=== PATIENT | male | born 1965 | race Caucasian/White ===

== ENCOUNTER 2016-09-26 07:40 | Inpatient (IN) ==
[2016-09-26 08:26] LABS: Basophils % 0.5 % (0.0-0.8); Eosinophils # 0.1 10*3/uL (0.0-0.87); Eosinophils % 1.7 % (0.00-10.9); Hematocrit 39.5 VOL% (42.0-52.0); Immature Granulocytes % 0.4 %; Immature Granulocytes Absolute 0.03 #; Lymphocytes # 1.3 10*3/uL (1.4-4.0); Lymphocytes % 16.7 % (21.2-54.2); Mean Corpuscular HGB Conc 35.4 GM/DL (32-36); Mean Corpuscular Hemoglobin 30 PG (27-34); Mean Corpuscular Volume 84.6 FL (87-102); Mean Platelet Volume 11.3 FL (9.6-12.0); Monocytes # 0.5 10*3/uL (0.11-0.8); Monocytes % 7.2 % (1.7-12.7); Neutrophils # 5.5 10*3/uL (1.4-7.4); Neutrophils % 73.5 % (38.7-73.9); Platelet Count 123 T/CUMM (130-400); Red Blood Count 4.67 MC/CUMM (3.8-5.5); Red Cell Distribution Width 13.6 % (9.3-17.3); White Blood Count 7.5 T/CUMM (4-12)
[2016-09-26 08:41] LABS: INR 1.4; PT Patient Result 14.7 SECS; Partial Thromboplastin Time 28.9 SECS (0-40)
[2016-09-26 08:46] LABS: Alanine Aminotransferase 21 U/L (16-61); Albumin 3.6 G/DL (3.4-5.0); Alkaline Phosphatase 79 U/L (45-117); Aspartate Amino Transferase 16 U/L (0-37); Bilirubin,Total < 0.39 MG/DL (0.2-1.0); Blood Urea Nitrogen 19 MG/DL (7-18); Calcium 8.8 MG/DL (8.5-10.1); Glucose 100 MG/DL (74-106); Osmolality,Calculated 274.8 MOS/KG (273-304); Potassium 4.5 MMOL/L (3.5-5.1); Sodium 137 MMOL/L (136-145); Total Protein 6.6 G/DL (6.4-8.3)
[2016-09-26 08:49] LABS: Troponin I Only 0.049 NG/ML (0.00-0.045)
--- NOTE | 2016-09-26 09:32 | XRay Report ---
XR chest 1V portable Indication: Shortness of breath. Chest one view: No comparison. Moderate cardiomegaly is present. Mild interstitial prominence of the lungs noted throughout. However, no convincing peripheral pulmonary edema is seen. There is an element of peribronchial thickening centrally. No focal pneumonia. Pleural spaces are clear. Impression: 1. Moderate cardiomegaly without overt CHF. 2. Airways disease such as bronchitis. PROCEDURE INTERPRETED AT [facility] DEPARTMENT OF RADIOLOGY Final Report Signed by: Ulysses Parnell M.D.
[2016-09-26] MEDS ORDERED: FUROSEMIDE 40 MG/4 ML VIAL IV STA (09:36)
[2016-09-26] MEDS ORDERED: ASPIRIN 325 MG TABLET PO STA (09:46)
--- NOTE | 2016-09-26 09:48 | EKG Report ---
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
--- NOTE | 2016-09-26 09:49 | Emergency Department Note ---
IOra Gwan, am scribing for, and in the presence of, Janna Goyal DO 08:26 . IJay Jay Debra, DO, personally performed the services described in this documentation, ascribed by Katelynn Payan in my presence, and it is both accurate and complete 949 . Arrival - Arrival Chief Complaint: Shortness of Breath Stated Complaint: sob,anxiety ED Nursing Triage Note: PT SENT FROM [facility] FOR EVALUATION OF SHORTNESS OF BREATH. PT REPORTS BECOMING SHORT OF BREATH AND ANXIOUS AFTER SMOKING A CIGARETTE. EMS FOUND PT TO BE IN AFIB RVR IN 140'S. PT DENES CHEST PAIN. PT HAS SEEN DR MANJARREZ FOR AFIB Mode of Arrival: Stretcher Source: Patient, Old Records Reviewed - History of Present Illness HPI Narrative: Patient is a 51 y/o male who presents to the ED via [facility] for further evaluation of possible anxiety attack. Patient stated that he went out to smoke a cigarette and he began to experience sxs of a panic attack. EMS noted that when they arrived, pt's was in AFIB with RVR in 140's. Patient confirmed that he is being followed by Dr. Manjarrez for AFIB and that he has been complaint with all prescribed medication. Patient then said that he has had a hard time breathing. He denies having in chest pain. During exam, patient appeared anxious and slightly delayed. No other problems/complaints reported in ED. Onset (ago): hour(s) Consistency: constant Severity: moderate Allergies/Adverse Reactions: Allergies Allergy/AdvReac Type Severity Reaction Status Date / Time No Known Allergies Allergy Verified 09/26/16 07:52 Review of System - Review of System 12 point system: reviewed and no additional remarkable complaints except as stated - Review of System Constitutional: Absent: chills, fever Eyes: Absent: discharge, pain Psychiatric: Present: as per HPI, anxiety. Absent: depression Medical,Surgical,& Family Hx - Medical History Cardio: History of: Cardiac Dysrhythmia (AFIB), Hypertension Psychological: History of: Schizophrenia (PARANOID) Endocrine: History of: Thyroid Disorder Gastrointestinal: History of: GERD - Social History Smoking Status: Current every day smoker Frequency of Alcohol Use: None Type of Drug Use: None Exam Vital Signs: Vital Signs Temperature 96.9 F L 09/26/16 07:40 Pulse Rate 90 09/26/16 07:40 Respiratory Rate 18 09/26/16 07:40 Blood Pressure 117/75 09/26/16 07:40 O2 Sat by Pulse Oximetry 96 09/26/16 07:40 - General General appearance: alert, in no apparent distress, anxious, obese - Head Head exam: Present: atraumatic, normocephalic - Eye Eye exam: Present: normal appearance, PERRL, EOMI - ENT ENT exam: Present: normal oropharynx, mucous membranes moist, TM's normal bilaterally, normal external ear exam - Neck Neck exam: Present: full ROM, trachea midline. Absent: tenderness - Chest Chest inspection: Present: symmetric chest wall rise. Absent: tenderness - Respiratory Respiratory exam: Present: normal lung sounds bilaterally. Absent: respiratory distress - Cardiovascular Cardiovascular exam: Present: regular rate, normal rhythm, normal heart sounds. Absent: murmur - Abdominal Exam Abdominal exam: Present: soft. Absent: tenderness - Extremities Exam Extremities exam: Present: full ROM. Absent: tenderness - Back Exam Back exam: Present: full ROM. Absent: tenderness - Neurological Exam Neurological exam: Present: alert, oriented X3, CN II-XII intact. Absent: motor sensory deficit - Psychiatric Psychiatric exam: Present: normal affect, normal mood - Skin Skin exam: Present: warm, dry, intact, normal color Course Course Narrative: spoke with hospitalist who will admit pt. pt is stable at this pt and is not currently having chest pain. Results - Labs CBC & BMP: 09/26/16 08:11 09/26/16 08:11 Lab Results: I have reviewed the patients labs Labs: Laboratory Tests 09/26/16 08:11 WBC 7.5 RBC 4.67 Hgb 14.0 Hct 39.5 L MCV 84.6 L Plt Count 123 L Lymph % (Auto) 16.7 L Lymph # (Auto) 1.3 L Disposition Clinical Impression: Congestive heart failure, Elevated troponin Case discussed with: patient Disposition: Still a Patient Condition: Stable Time of Disposition: 09:49
--- NOTE | 2016-09-26 09:49 | EKG Report ---
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
[2016-09-26] MEDS ORDERED: FUROSEMIDE 40 MG/4 ML VIAL ONE (10:09)
[2016-09-26] MEDS ORDERED: ASPIRIN 325 MG TABLET ONE (10:09)
[2016-09-26] MEDS ORDERED: NITROGLYCERIN SL 0.4 MG TABLET SL PRN (11:07)
[2016-09-26] MEDS ORDERED: ONDANSETRON 4 MG/2 ML VIAL IV PRN ×2 (11:07→11:09)
[2016-09-26] MEDS ORDERED: MAGNESIUM SULF RIDER 4 GM in PREMIX 1 EACH IV PRN (11:07)
[2016-09-26] MEDS ORDERED: POTASSIUM CHLORIDE 20 MEQ TABLET PO PRN ×2 (11:07)
[2016-09-26] MEDS ORDERED: MAGNESIUM SULF RIDER 2 GM in PREMIX 1 EACH IV PRN (11:07)
[2016-09-26] MEDS ORDERED: ALBUTEROL 0.63 MG/3 ML NEB RESP TX PRN (11:08)
[2016-09-26] MEDS ORDERED: METOPROLOL TARTRATE 100 MG TABLET PO ONE (11:11)
--- NOTE | 2016-09-26 11:15 | Hospitalist History & Physical ---
Assessment and Plan (1) Schizophrenia, paranoid type Status: Acute Assessment and plan: We have contacted the residential home that the patient resides in order to accurately reconciled the patient's current medications. We receive the most recent medication list and we will resume the patient's medications per home dose. Current Visit: Yes (2) Congestive heart failure Status: Acute Assessment and plan: BNP was noted at 800. Chest x-ray remarkable for moderate cardiomegaly without overt CHF. We will gently diurese, start beta-blockers, and BJ inhibitors. We will recheck chest x-ray in a.m. Current Visit: Yes (3) Elevated troponin Status: Acute Assessment and plan: Initial creatinine was noted at 0.049. We will obtain serial cardiac enzymes and if positive we will consult cardiology. Current Visit: Yes (4) Atrial fibrillation with rapid ventricular response Status: Acute Assessment and plan: The patient is currently being followed in the outpatient setting by Dr. Pereira at the [facility] for this problem. The patient was recently placed on anticoagulant Xarelto and a beta-zack metoprolol as a treatment regimen. Per retirement staff report, the patient was scheduled to start the beta-zack on this morning however, he was already taking the Xarelto. We will resume metoprolol per cardiology recommendation at 100 mg twice daily. We will place the patient on a chief operating engineer and continue Xarelto as previously ordered. Current Visit: Yes History of Present Illness Chief complaint: Chest pain History of present illness: This is a very pleasant 51-year-old male that presented to the ED at [facility] on this morning for the evaluation of chest pain. Patient has a medical history significant for schizophrenia paranoid type, hypertension, atrial fibrillation with rapid ventricular response. Dyslipidemia , current nicotine addiction, and hypothyroidism. The patient reported no significant surgical history at the time of ED encounter. The patient reported the onset of symptoms several weeks prior to presentation. He reported that he started feeling short of breath and experienced palpitations several weeks prior to presentation however, he attributed to cigarette smoking. His symptoms continue to persist and he reported the symptoms to the housekeeping worker of the residential home that he resides seen. They in turn took him to see his primary care physician Dr. Wood for further evaluation. The patient was evaluated and subsequently sent to a sort worker for further evaluation. The patient reported that he has since reduced his nicotine consumption to "2 packs of cigarettes a day to 6 cigarettes a day". He reported that he was seen by Dr. Pereira at the [facility]. He was told that he could possibly need a heart catheterization however there was concerns regarding his heart rate. He was subsequently started on Xarelto and metoprolol and told to follow-up in 2 weeks. He reported the onset of symptoms on this morning shortly after smoking a cigarette. He reports that he started to experience extreme shortness of breath and palpitations; which he attributed to a panic attack. His symptoms became severe prompting the retirement staff to summoned emergency assistance. Upon EMS arrival, the patient was placed on the chief operating engineer and was noted to be experiencing atrial fibrillation with rapid ventricular response with a heart rate in the 140s. The patient was subsequently transported to [facility] for further evaluation. The patient was assessed at the time of ED presentation. Upon assessment, the patient was noted to be in atrial fibrillation however his rate was less than 100. The chest pain protocol was initiated. Labs were obtained which were remarkable for hematocrit of 39.5, BUN 19, creatinine 1.60, CK-MB 4.0, troponin 0 0.049, and BNP of 800. Chest x-ray reported moderate cardiomegaly without overt congestive heart failure and the presence of airway disease similar to bronchitis was noted. After brief discussion with both Dr. Goyal and Dr. Lyons , the patient will be admitted to the hospitalist service for continuation of care. At the time of presentation, the medication reconciliation sheet did not reflect the start of Xarelto or metoprolol. I contacted the [facility] and spoke with the linux solar[employer] administrator on-call Guy Rhodes. The patient's medications were reconciled based on the patient's current medications there which included Xarelto and metoprolol. We will review the patient's medications and reconciled. In addition, the retirement has requested notification of the patient's pending discharge when the patient is deemed appropriate. The patient normally resides in a [facility] and their contact number is [phone]. They have requested notification when the patient is appropriate for discharge in an effort to schedule transport back to the retirement. Home Medications Medication Instructions Recorded Confirmed Type Benztropine Mesylate [Benztropine 2 mg PO BEDTIME 09/26/16 09/26/16 History Mesylate] Divalproex Sodium [Divalproex 2,000 mg PO BEDTIME 09/26/16 09/26/16 History Sodium ER] Divalproex Sodium [Divalproex 500 mg PO QAM 09/26/16 09/26/16 History Sodium ER] Gemfibrozil [Gemfibrozil] 600 mg PO BID 09/26/16 09/26/16 History Levothyroxine Tab [Synthroid Tab] 100 mcg PO DAILY@0700 09/26/16 09/26/16 History Lisinopril 20 mg PO DAILY 09/26/16 09/26/16 History Metoprolol Tartrate 100 mg PO DAILY 09/26/16 09/26/16 History Multivitamin [One Daily 1 each PO DAILY 09/26/16 09/26/16 History Multivitamin] Omeprazole [Omeprazole] 20 mg PO DAILY 09/26/16 09/26/16 History Rivaroxaban [Xarelto] 20 mg PO DAILY 09/26/16 09/26/16 History diphenhydrAMINE CAP [Benadryl Cap] 50 mg PO Q4H PRN 09/26/16 09/26/16 History hydrOXYzine pamoate [Hydroxyzine 25 mg PO TID PRN 09/26/16 09/26/16 History Pamoate] hydroCHLOROthiazide 12.5 mg PO DAILY 09/26/16 09/26/16 History [Hydrochlorothiazide] risperiDONE [Risperidone] 3 mg PO BID 09/26/16 09/26/16 History Allergies Allergy/AdvReac Type Severity Reaction Status Date / Time No Known Allergies Allergy Verified 09/26/16 07:52 Medical,Surgical,& Family Hx - Medical History Cardio: History of: Cardiac Dysrhythmia (AFIB), Hypertension Psychological: History of: Schizophrenia (PARANOID) Endocrine: History of: Thyroid Disorder Gastrointestinal: History of: GERD - Social History Smoking Status: Current every day smoker Frequency of Alcohol Use: None Type of Drug Use: None - Constitutional Constitutional: Absent: anorexia, chills - EENT Ears: Absent: decreased hearing, ear discharge Nose, mouth and throat: Absent: dysphagia, epistaxis - Cardiovascular Cardiovascular: Present: chest pain with activity, dyspnea, dyspnea on exertion - Respiratory Respiratory: Present: dyspnea, dyspnea on exertion. Absent: cough, hemoptysis - Gastrointestinal Gastrointestinal: Absent: abdominal pain, diarrhea, nausea, vomiting - Genitourinary Genitourinary: Absent: difficulty urinating, flank pain - Musculoskeletal Musculoskeletal: Absent: arthralgias, back pain - Neurological Neurological: Absent: abnormal gait, abnormal speech - Psychiatric Psychiatric: Present: panic attacks. Absent: anxiety, memory loss - Endocrine Endocrine: Absent: cold intolerance, fatigue - Hematologic/Lymphatic Hematologic/Lymphatic: Absent: easy bleeding, easy bruising Exam - Constitutional Vitals: Period Temp Pulse Resp BP Sys/Adamson Pulse Ox Last 24 Hr 96.9 F-96.9 F 90-120 18-18 90-117/68-83 94-100 General appearance: normal weight, no acute distress - Head Head exam: Present: normal inspection, normocephalic, atraumatic - Eye Eye exam: Present: EOMI. Absent: conjunctival injection Pupils: Present: DELMA, normal accommodation - ENT ENT exam: Present: normal exam, normal external ear exam, normal oropharynx - Neck Neck exam: Present: normal inspection. Absent: lymphadenopathy, meningismus, thyromegaly - Respiratory Respiratory exam: Present: clear to auscultation bilaterally - Cardiovascular Cardiovascular exam: Present: irregular rhythm (Atrial fibrillation), other - GI/Abdominal GI/Abdominal exam: Present: normal bowel sounds, soft - Extremities Exam Extremities exam: Present: normal inspection, normal capillary refill, full ROM. Absent: edema - Back Exam Back exam: Present: normal inspection - Neurological Exam Neurological exam: Present: alert, oriented X3, CN II-XII intact - Psychiatric Psychiatric exam: Present: flat affect - Skin Skin exam: Present: normal color, warm, dry Results - Labs CBC & BMP: 09/26/16 08:11 09/26/16 08:11 Lab Results: I have reviewed the past 24 hour labs Quality Measures - VTE Contraindication to Pharmacological VTE Prophylaxis: Already on Theraputic Agent , No Prophylaxis Needed
--- NOTE | 2016-09-26 11:28 | EKG Report ---
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
[2016-09-26] MEDS: ALBUTEROL 0.63 MG/3 ML NEB RESP TX SCH ×2 (13:44→19:30)
--- NOTE | 2016-09-26 13:46 | EKG Report ---
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
[2016-09-26] MEDS ORDERED: HydrOXYzine PAMOATE 25 MG CAPSULE PO PRN (14:37)
[2016-09-26] MEDS ORDERED: diphenhydrAMINE CAP 25 MG CAPSULE PO PRN (14:37)
[2016-09-26 15:07] LABS: Free T4 (Free Thyroxine) 0.98 NG/DL (0.76-1.46); Thyroid Stimulating Hormone 2.01 uIU/ml (0.358-3.74)
--- NOTE | 2016-09-26 20:42 | Cardiology Consult Note ---
Assessment and Plan (1) Elevated troponin Status: Acute Assessment and plan: 1. 51-year-old WM with hypertension, dyslipidemia, paranoid schizophrenia, and atrial fibrillation for at least a month, placed on Xarelto and metoprolol by Dr. Pereira about 2 weeks ago. He reports he was going to go back for stress testing after his rate was controlled but developed sudden shortness of breath after smoking a cigarette this morning and was found to have RVR in the 130s range but is now in the 90s. 2. He had no chest discomfort but did report having some a month or so ago with a previous episode. 3. Strong family history coronary artery disease his father had heart attack at age 52 4. He needs to stop all smoking; reports he is dropped from 2 packs a day to 6 cigarettes per day 5. We will give long-acting metoprolol to try to better control his rate. 6. Check renal function, electrolytes, TSH in the morning 7. Consider following up with Dr. Pereira as previously scheduled, or heart catheterization Wednesday depending on how he does; he had trivial elevation troponin but it did increase from 0.04-0.14 8. Creatinine is modestly elevated at 1.6 9. Hold Xarelto tomorrow in case he needs heart catheterization Wednesday morning 10. Change Lopid to atorvastatin 40 assuming may have CAD. Current Visit: Yes (2) Atrial fibrillation with rapid ventricular response Status: Acute Current Visit: Yes History of Present Illness - Consult Narrative History of present illness: Mr. Hines is a 51 year old male who was seen by Dr. Pereira a couple weeks ago when he apparently had atrial fibrillation with mild RVR I was placed on metoprolol and Xarelto. He reports that he did bring him back for a stress test when his heart rate is controlled. He went out to smoke a cigarette this morning and shortly thereafter became very short of breath and felt lightheaded. He was brought here and found to have RVR which is now somewhat controlled. He had no chest discomfort but he did have chest discomfort a month or so ago when he had his first episode like this. He is in care for his schizophrenia ([facility]?). He is asymptomatic currently. CC: Maria Ines Frank - Home Medications and Allergies Home Medications: Home Medications Medication Instructions Recorded Confirmed Type Benztropine Mesylate [Benztropine 2 mg PO BEDTIME 09/26/16 09/26/16 History Mesylate] Divalproex Sodium [Divalproex 2,000 mg PO BEDTIME 09/26/16 09/26/16 History Sodium ER] Divalproex Sodium [Divalproex 500 mg PO QAM 09/26/16 09/26/16 History Sodium ER] Gemfibrozil [Gemfibrozil] 600 mg PO BID 09/26/16 09/26/16 History Levothyroxine Tab [Synthroid Tab] 100 mcg PO DAILY@0700 09/26/16 09/26/16 History Lisinopril 20 mg PO DAILY 09/26/16 09/26/16 History Metoprolol Tartrate 100 mg PO DAILY 09/26/16 09/26/16 History Multivitamin [One Daily 1 each PO DAILY 09/26/16 09/26/16 History Multivitamin] Omeprazole [Omeprazole] 20 mg PO DAILY 09/26/16 09/26/16 History Rivaroxaban [Xarelto] 20 mg PO DAILY 09/26/16 09/26/16 History diphenhydrAMINE CAP [Benadryl Cap] 50 mg PO Q4H PRN 09/26/16 09/26/16 History hydrOXYzine pamoate [Hydroxyzine 25 mg PO TID PRN 09/26/16 09/26/16 History Pamoate] hydroCHLOROthiazide 12.5 mg PO DAILY 09/26/16 09/26/16 History [Hydrochlorothiazide] risperiDONE [Risperidone] 3 mg PO BID 09/26/16 09/26/16 History Allergies/Adverse Reactions: Allergies Allergy/AdvReac Type Severity Reaction Status Date / Time No Known Allergies Allergy Verified 09/26/16 07:52 Medical,Surgical,& Family Hx - Medical History Cardio: History of: Cardiac Dysrhythmia (AFIB), Hypertension Psychological: History of: Anxiety Disorders, Schizophrenia (PARANOID) Endocrine: History of: Thyroid Disorder Genitourinary: History of: Bladder Problem (for hematuria- had scope) Gastrointestinal: History of: GERD - Family History Family History: Reports;: Family Heart Disease (father) - Social History Smoking Status: Current every day smoker Frequency of Alcohol Use: None Type of Drug Use: None Physical Examination Vital Signs Temp Pulse Resp BP Pulse Ox 96.9 F L 90 18 117/75 96 09/26/16 07:40 09/26/16 07:40 09/26/16 07:40 09/26/16 07:40 09/26/16 07:40 General: Present: Appears Well, No Apparent Distress HEENT: Present: Normocephaly Neck: Present: Supple Neck, Midline Trachea, No JVD/HJR Cardiac: Present: Irregularly Regular. Absent: Systolic Murmur, Diastolic Murmur Lungs: Present: Normal Breath Sounds Abdomen: Present: Soft. Absent: Tender Extremities: Absent: Edema Result/EKG - Labs CBC & BMP: 09/26/16 08:11 09/26/16 08:11 Labs: Laboratory Results - last 24 hr 09/26/16 09/26/16 09/26/16 08:11 08:11 08:11 WBC 7.5 RBC 4.67 Hgb 14.0 Hct 39.5 L MCV 84.6 L MCH 30 MCHC 35.4 RDW 13.6 Plt Count 123 L MPV 11.3 Neut % (Auto) 73.5 Lymph % (Auto) 16.7 L Gray % (Auto) 7.2 Eos % (Auto) 1.7 Baso % (Auto) 0.5 Neut # (Auto) 5.5 Lymph # (Auto) 1.3 L Gray # (Auto) 0.5 Eos # (Auto) 0.1 Baso # (Auto) 0.0 Immature Gran % 0.4 Nucleated RBC % 0.0 Immature Gran # 0.03 Nucleated RBCs # 0.00 Immature Plt Fraction 0.0 INR PT Patient/Control Mix Circ Anticoag PTT Sodium 137 Potassium 4.5 Chloride 105 Carbon Dioxide 24 Anion Gap 12.5 BUN 19 H Creatinine 1.60 H GFR Calculation 65 BUN/Creatinine Ratio 11.00 Glucose 100 Calculated Osmolality 274.8 Calcium 8.8 Total Bilirubin < 0.39 AST 16 ALT 21 Alkaline Phosphatase 79 Total Creatine Kinase 212 CK-MB (CK-2) 4.0 H Troponin I 0.049 H B-Natriuretic Peptide 800 H Total Protein 6.6 Albumin 3.6 Globulin 3.0 Albumin/Globulin Ratio 1.2 Free T4 TSH 3rd Generation 09/26/16 09/26/16 09/26/16 08:11 13:46 13:46 WBC RBC Hgb Hct MCV MCH MCHC RDW Plt Count MPV Neut % (Auto) Lymph % (Auto) Gray % (Auto) Eos % (Auto) Baso % (Auto) Neut # (Auto) Lymph # (Auto) Gray # (Auto) Eos # (Auto) Baso # (Auto) Immature Gran % Nucleated RBC % Immature Gran # Nucleated RBCs # Immature Plt Fraction INR 1.4 PT Patient/Control Mix 14.7 Circ Anticoag PTT 28.9 Sodium Potassium Chloride Carbon Dioxide Anion Gap BUN Creatinine GFR Calculation BUN/Creatinine Ratio Glucose Calculated Osmolality Calcium Total Bilirubin AST ALT Alkaline Phosphatase Total Creatine Kinase CK-MB (CK-2) Troponin I 0.122 H D B-Natriuretic Peptide Total Protein Albumin Globulin Albumin/Globulin Ratio Free T4 0.98 TSH 3rd Generation 2.010 09/26/16 17:07 WBC RBC Hgb Hct MCV MCH MCHC RDW Plt Count MPV Neut % (Auto) Lymph % (Auto) Gray % (Auto) Eos % (Auto) Baso % (Auto) Neut # (Auto) Lymph # (Auto) Gray # (Auto) Eos # (Auto) Baso # (Auto) Immature Gran % Nucleated RBC % Immature Gran # Nucleated RBCs # Immature Plt Fraction INR PT Patient/Control Mix Circ Anticoag PTT Sodium Potassium Chloride Carbon Dioxide Anion Gap BUN Creatinine GFR Calculation BUN/Creatinine Ratio Glucose Calculated Osmolality Calcium Total Bilirubin AST ALT Alkaline Phosphatase Total Creatine Kinase CK-MB (CK-2) Troponin I 0.139 H B-Natriuretic Peptide Total Protein Albumin Globulin Albumin/Globulin Ratio Free T4 TSH 3rd Generation Quality Measures - VTE Contraindication to Pharmacological VTE Prophylaxis: Already on Theraputic Agent , No Prophylaxis Needed
[2016-09-26] MEDS ORDERED: GEMFIBROZIL 600 MG TABLET PO SCH (21:00)
[2016-09-26] MEDS: risperiDONE 1 MG TABLET PO SCH (21:18)
[2016-09-26] MEDS: METOPROLOL SUCCINATE XL 50 MG TABLET PO SCH (21:19)
[2016-09-26] MEDS: ATORVASTATIN 40 MG TABLET PO SCH (21:19)
[2016-09-26] MEDS: DIVALPROEX ER 500 MG TABLET PO SCH (21:19)
[2016-09-26] MEDS: BENZTROPINE 2 MG TABLET PO SCH (21:20)
[2016-09-27] MEDS: ALBUTEROL 0.63 MG/3 ML NEB RESP TX SCH ×4 (00:59→19:47)
[2016-09-27 05:48] LABS: Basophils # 0.1 10*3/uL (0.0-0.2); Basophils % 0.8 % (0.0-0.8); Eosinophils # 0.3 10*3/uL (0.0-0.87); Eosinophils % 3.8 % (0.00-10.9); Hematocrit 40.7 VOL% (42.0-52.0); Hemoglobin 14.1 GM/DL (14.0-18.0); Immature Granulocytes % 0.4 %; Immature Granulocytes Absolute 0.03 #; Lymphocytes # 2.6 10*3/uL (1.4-4.0); Lymphocytes % 36.1 % (21.2-54.2); Mean Corpuscular HGB Conc 34.6 GM/DL (32-36); Mean Corpuscular Hemoglobin 30 PG (27-34); Mean Corpuscular Volume 85.1 FL (87-102); Mean Platelet Volume 11.6 FL (9.6-12.0); Monocytes # 0.7 10*3/uL (0.11-0.8); Monocytes % 10.4 % (1.7-12.7); Neutrophils # 3.5 10*3/uL (1.4-7.4); Neutrophils % 48.5 % (38.7-73.9); Platelet Count 131 T/CUMM (130-400); Red Blood Count 4.78 MC/CUMM (3.8-5.5); Red Cell Distribution Width 13.5 % (9.3-17.3); White Blood Count 7.1 T/CUMM (4-12)
[2016-09-27] MEDS: LEVOTHYROXINE 100 MCG TABLET PO SCH (06:11)
[2016-09-27 06:18] LABS: Calcium 8.8 MG/DL (8.5-10.1); Osmolality,Calculated 279.5 MOS/KG (273-304); Potassium 3.8 MMOL/L (3.5-5.1); Risk Ratio 4.79; VLDL CHOLESTEROL 36.2 MG/DL
[2016-09-27 06:29] LABS: Albumin 3.3 G/DL (3.4-5.0); Bilirubin,Total 0.6 MG/DL (0.2-1.0); Magnesium 2.3 MG/DL (1.8-2.4); Osmolality,Calculated 282.4 MOS/KG (273-304); Potassium 3.8 MMOL/L (3.5-5.1); Total Protein 6.5 G/DL (6.4-8.3)
--- NOTE | 2016-09-27 08:31 | Hospitalist Progress Note ---
Assessment and Plan - Time spent with patient Time spent with patient: Less than 30 minutes (1) Elevated troponin Status: Acute Assessment and plan: Patient continues to deny any chest pain. Troponin did peak at approximately 0.139 and is now trending downwards. Is otherwise doing well. Will defer to cardiology in reference to proceeding with further evaluation, stress testing versus left heart catheterization. Current Visit: Yes (2) Atrial fibrillation with rapid ventricular response Status: Acute Assessment and plan: Rate currently shows on the monitor ranging from 90-110. Will continue to optimize regimen for rate control. Anticoagulation is currently on hold until cardiology determines need for possible left heart cath on Wednesday. Current Visit: Yes (3) Schizophrenia, paranoid type Status: Chronic Assessment and plan: Continuing current medical regimen. Current Visit: Yes Hospitalist: Subjective Interval history: Mr. Hines denies any chest pain or shortness of breath at this time. He does have intermittent palpitations. He is tolerating his diet. He was seen by cardiology yesterday and appreciate their input. Exam - Constitutional Vitals: Period Temp Pulse Resp BP Sys/Adamson Pulse Ox Last 24 Hr 97.8 F-98.6 F 64-120 16-22 94-123/70-90 92-100 General appearance: no acute distress - Head Head exam: Present: normocephalic, atraumatic - Eye Eye exam: Present: EOMI Pupils: Present: DELMA - ENT ENT exam: Present: normal exam - Neck Neck exam: Present: normal inspection - Respiratory Respiratory exam: Present: clear to auscultation bilaterally. Absent: rales, rhonchi, wheezes - Cardiovascular Cardiovascular exam: Present: irregular rhythm, tachycardia - GI/Abdominal GI/Abdominal exam: Present: normal bowel sounds, soft. Absent: mass, tenderness , rebound - Extremities Exam Extremities exam: Absent: calf tenderness, edema - Neurological Exam Neurological exam: Present: alert, oriented X3, CN II-XII intact. Absent: motor sensory deficit - Psychiatric Psychiatric exam: Present: normal affect, normal mood. Absent: agitated, anxious - Skin Skin exam: Present: warm, dry. Absent: erythema, rash Results - Labs CBC & BMP: 09/27/16 05:17 09/27/16 05:18 Lab Results: I have reviewed the past 24 hour labs - EKG EKG shows: atrial fibrillation Quality Measures - VTE Contraindication to Pharmacological VTE Prophylaxis: Already on Theraputic Agent , No Prophylaxis Needed
[2016-09-27] MEDS: LISINOPRIL 20 MG TABLET PO SCH (08:44)
[2016-09-27] MEDS: risperiDONE 1 MG TABLET PO SCH ×2 (08:44→21:40)
[2016-09-27] MEDS: MULTIVITAMIN (CENTRUM) TABLET PO SCH (08:44)
[2016-09-27] MEDS: METOPROLOL SUCCINATE XL 50 MG TABLET PO SCH ×2 (08:44→21:40)
[2016-09-27] MEDS: hydroCHLOROthiazide 12.5 MG CAPSULE PO SCH (08:44)
[2016-09-27] MEDS: DIVALPROEX ER 500 MG TABLET PO SCH ×2 (08:44→21:40)
[2016-09-27] MEDS: PANTOPRAZOLE 40 MG TABLET PO SCH (08:52)
[2016-09-27] MEDS ORDERED: METOPROLOL TARTRATE 100 MG TABLET PO SCH (09:00)
[2016-09-27] MEDS ORDERED: NON-FORMULARY MEDICATION (Omeprazole [Omeprazole] 20 MG) PO SCH (09:00)
[2016-09-27] MEDS ORDERED: RIVAROXABAN 20 MG TABLET PO SCH (09:00)
[2016-09-27] MEDS ORDERED: POTASSIUM CHLORIDE RIDER 10 MEQ in PREMIX 1 EACH IV PRN (09:51)
[2016-09-27] MEDS ORDERED: MAGNESIUM SULF RIDER 2 GM in PREMIX 1 EACH IV PRN (09:51)
--- NOTE | 2016-09-27 09:51 | Cardiology Progress Note ---
Assessment and Plan (1) Elevated troponin Status: Acute Assessment and plan: 1. 51-year-old WM with hypertension, dyslipidemia, paranoid schizophrenia, and atrial fibrillation for at least a month, placed on Xarelto and metoprolol by Dr. Pereira about 2 weeks ago. He reports he was going to go back for stress testing after his rate was controlled but developed sudden shortness of breath after smoking a cigarette this morning and was found to have RVR in the 130s range but is now in the 90s. 2. He had no chest discomfort but did report having some a month or so ago with a previous episode. 3. Strong family history coronary artery disease his father had heart attack at age 52 4. He needs to stop all smoking; reports he is dropped from 2 packs a day to 6 cigarettes per day 5. We will give long-acting metoprolol to try to better control his rate. 6. Check renal function, electrolytes, TSH in the morning 7. Consider following up with Dr. Pereira as previously scheduled, or heart catheterization Wednesday depending on how he does; he had trivial elevation troponin but it did increase from 0.04-0.14 8. Creatinine is modestly elevated at 1.6 9. Hold Xarelto tomorrow in case he needs heart catheterization Wednesday morning 10. Change Lopid to atorvastatin 40 assuming may have CAD. September 27, 2016: 1. Mr. Hines continues to be in atrial fibrillation (persistent) with episodes of RVR as well as episodes of shortness of breath intermittently. 2. Given his worrisome risk factors and previous chest discomfort episodes, I discussed with him the risks and benefits of stress testing versus heart catheterization. I would lean towards catheterization for definitive diagnosis and he is agreeable to this. His troponin elevation is slight but there is a rise from his initial value of 0.04. 3. Denies daytime somnolence 4. Will be very important that he stay off cigarettes from now on 5. Schedule left heart catheterization tomorrow morning from right groin approach I discussed with the patient the risks and benefits of heart catheterization including but not limited to: , stroke, heart attack, vascular damage, reaction to medicine or dye, bleeding requiring blood transfusion, failure of the procedure, and the possible need for planned or emergency surgery. I have answered all the patient's questions regarding the procedure, and the patient is agreeable to proceed. Current Visit: Yes (2) Atrial fibrillation with rapid ventricular response Status: Acute Current Visit: Yes Cardiology - PN: Subj Interval history: Mr. Hines had several shortness of breath episodes during the night "cannot like panic attack". He also had some episodes of RVR and continues to be in atrial fibrillation. Is not had any chest discomfort during the night. He says that he slept well otherwise. He is not having dizziness presyncope or syncope. Exam (Progress Note) - Constitutional Vitals: Period Temp Pulse Resp BP Sys/Adamson Pulse Ox Last 24 Hr 97.8 F-98.6 F 64-109 16-22 98-123/75-90 92-99 General appearance: normal weight, no acute distress - Neck Neck exam: Present: normal inspection - Respiratory Respiratory exam: Present: clear to auscultation bilaterally. Absent: stridor, wheezes - Cardiovascular Cardiovascular exam: Present: irregular rhythm. Absent: diastolic murmur, rubs , tachycardia - GI/Abdominal GI/Abdominal exam: Present: soft. Absent: tenderness - Extremities Exam Extremities exam: Absent: edema Result/EKG - Labs CBC & BMP: 09/27/16 05:17 09/27/16 05:18 Labs: Laboratory Results - last 24 hr 09/26/16 09/26/16 09/26/16 13:46 13:46 17:07 WBC RBC Hgb Hct MCV MCH MCHC RDW Plt Count MPV Neut % (Auto) Lymph % (Auto) [place] % (Auto) Eos % (Auto) Baso % (Auto) Neut # (Auto) Lymph # (Auto) [place] # (Auto) Eos # (Auto) Baso # (Auto) Immature Gran % Nucleated RBC % Immature Gran # Nucleated RBCs # Immature Plt Fraction Sodium Potassium Chloride Carbon Dioxide Anion Gap BUN Creatinine GFR Calculation BUN/Creatinine Ratio Glucose Calculated Osmolality Calcium Magnesium Total Bilirubin AST ALT Alkaline Phosphatase Troponin I 0.122 H D 0.139 H Total Protein Albumin Globulin Albumin/Globulin Ratio Triglycerides Cholesterol LDL Cholesterol VLDL Cholesterol HDL Cholesterol Heart Disease Risk Ratio Free T4 0.98 TSH 3rd Generation 2.010 09/26/16 09/27/16 09/27/16 20:22 05:17 05:17 WBC 7.1 RBC 4.78 Hgb 14.1 Hct 40.7 L MCV 85.1 L MCH 30 MCHC 34.6 RDW 13.5 Plt Count 131 MPV 11.6 Neut % (Auto) 48.5 Lymph % (Auto) 36.1 [place] % (Auto) 10.4 Eos % (Auto) 3.8 Baso % (Auto) 0.8 Neut # (Auto) 3.5 Lymph # (Auto) 2.6 [place] # (Auto) 0.7 Eos # (Auto) 0.3 Baso # (Auto) 0.1 Immature Gran % 0.4 Nucleated RBC % 0.0 Immature Gran # 0.03 Nucleated RBCs # 0.00 Immature Plt Fraction 0.0 Sodium 140 Potassium 3.8 Chloride 105 Carbon Dioxide 24 Anion Gap 14.8 BUN 23 H Creatinine 1.60 H GFR Calculation 64 BUN/Creatinine Ratio 14.00 Glucose 92 Calculated Osmolality 282.4 Calcium 9.0 Magnesium 2.3 Total Bilirubin 0.60 AST 16 ALT 19 Alkaline Phosphatase 82 Troponin I 0.132 H Total Protein 6.5 Albumin 3.3 L Globulin 3.2 Albumin/Globulin Ratio 1.0 L Triglycerides Cholesterol LDL Cholesterol VLDL Cholesterol HDL Cholesterol Heart Disease Risk Ratio Free T4 TSH 3rd Generation 09/27/16 09/27/16 05:17 05:18 WBC RBC Hgb Hct MCV MCH MCHC RDW Plt Count MPV Neut % (Auto) Lymph % (Auto) [place] % (Auto) Eos % (Auto) Baso % (Auto) Neut # (Auto) Lymph # (Auto) [place] # (Auto) Eos # (Auto) Baso # (Auto) Immature Gran % Nucleated RBC % Immature Gran # Nucleated RBCs # Immature Plt Fraction Sodium 139 Potassium 3.8 Chloride 104 Carbon Dioxide 23 Anion Gap 15.8 H BUN 25 H Creatinine 1.50 H GFR Calculation 69 BUN/Creatinine Ratio 16.00 Glucose 88 Calculated Osmolality 279.5 Calcium 8.8 Magnesium Total Bilirubin AST ALT Alkaline Phosphatase Troponin I 0.093 H D Total Protein Albumin Globulin Albumin/Globulin Ratio Triglycerides 181 H Cholesterol 139 LDL Cholesterol 89.0 VLDL Cholesterol 36.2 HDL Cholesterol 29 L Heart Disease Risk Ratio 4.79 Free T4 TSH 3rd Generation Quality Measures - VTE Contraindication to Pharmacological VTE Prophylaxis: Already on Theraputic Agent , No Prophylaxis Needed
--- NOTE | 2016-09-27 10:51 | EKG Report ---
Stationary ECG Study [facility] Test Date: 09/27/2016 10:27:47 AM Pat Name: MARY NIELSEN Department: Room: 273 Gender: M Stabber: AMBER : 1965 Requested by: Dony Terrazas Order Number: [id number] Reading MD: ENDY SO Intervals [place] Rate: 114 P: 999 [place]: 0 QRS: 71 QRSD: 88 T: 30 QT: 345 QTc: 413 Interpretive Statements ATRIAL FIBRILLATION WITH RAPID VENTRICULAR RESPONSE WITH ABERRANT CONDUCTION OR VENTRICULAR PREMATURE COMPLEXES ABNORMAL RHYTHM ECG INTERPRETATION BASED ON A DEFAULT AGE OF 40 YEARS Electronically Signed On 09-27-16 10:54:29 CDT by ENDY SO [email or web address]
--- NOTE | 2016-09-27 11:00 | EKG Report ---
Stationary ECG Study [facility] Test Date: 09/26/2016 6:45:29 PM Pat Name: MARY NIELSEN Department: Room: 273 Gender: M Band Master: DANIELLE : 1965 Requested by: Madi Cedeno Order Number: [id number] Reading MD: SALINA MCCORMICK Intervals [place] Rate: 100 P: 999 [place]: 0 QRS: 62 QRSD: 87 T: 53 QT: 349 QTc: 406 Interpretive Statements ATRIAL FIBRILLATION WITH RAPID VENTRICULAR RESPONSE Electronically Signed On 09-28-16 06:52:00 CDT by SALINA MCCORMICK [email or web address]
[2016-09-27] MEDS: SODIUM CHLORIDE 0.45% 1,000 ML IV SCH (13:13)
[2016-09-27] MEDS: ATORVASTATIN 40 MG TABLET PO SCH (21:40)
[2016-09-27] MEDS: BENZTROPINE 2 MG TABLET PO SCH (21:40)
[2016-09-28] MEDS: ALBUTEROL 0.63 MG/3 ML NEB RESP TX SCH ×4 (00:32→19:18)
[2016-09-28 05:00] LABS: Basophils # 0.1 10*3/uL (0.0-0.2); Basophils % 0.9 % (0.0-0.8); Eosinophils # 0.3 10*3/uL (0.0-0.87); Eosinophils % 3.9 % (0.00-10.9); Hematocrit 37.7 VOL% (42.0-52.0); Hemoglobin 13.5 GM/DL (14.0-18.0); Immature Granulocytes % 0.1 %; Immature Granulocytes Absolute 0.01 #; Lymphocytes # 2.3 10*3/uL (1.4-4.0); Lymphocytes % 29.3 % (21.2-54.2); Mean Corpuscular HGB Conc 35.8 GM/DL (32-36); Mean Corpuscular Hemoglobin 30 PG (27-34); Mean Corpuscular Volume 83.6 FL (87-102); Mean Platelet Volume 11.5 FL (9.6-12.0); Monocytes # 0.7 10*3/uL (0.11-0.8); Monocytes % 8.3 % (1.7-12.7); Neutrophils # 4.6 10*3/uL (1.4-7.4); Neutrophils % 57.5 % (38.7-73.9); Platelet Count 123 T/CUMM (130-400); Red Blood Count 4.51 MC/CUMM (3.8-5.5); Red Cell Distribution Width 13.3 % (9.3-17.3); White Blood Count 7.9 T/CUMM (4-12)
[2016-09-28 05:29] LABS: Calcium 8.8 MG/DL (8.5-10.1); Osmolality,Calculated 276.8 MOS/KG (273-304); Potassium 3.7 MMOL/L (3.5-5.1)
[2016-09-28] MEDS: SODIUM CHLORIDE 0.45% 1,000 ML IV SCH ×2 (06:11→13:46)
[2016-09-28] MEDS: LEVOTHYROXINE 100 MCG TABLET PO SCH (06:12)
[2016-09-28] MEDS ORDERED: DIAZEPAM 5 MG TABLET PO ONE (07:27)
[2016-09-28] MEDS ORDERED: diphenhydrAMINE CAP 50 MG CAPSULE PO ONE (07:27)
[2016-09-28] MEDS: MULTIVITAMIN (CENTRUM) TABLET PO SCH ×2 (07:38→10:17)
[2016-09-28] MEDS: DIVALPROEX ER 500 MG TABLET PO SCH ×3 (07:38→20:36)
[2016-09-28] MEDS: METOPROLOL SUCCINATE XL 50 MG TABLET PO SCH ×3 (07:38→20:36)
[2016-09-28] MEDS: PANTOPRAZOLE 40 MG TABLET PO SCH ×2 (07:38→10:17)
[2016-09-28] MEDS: LISINOPRIL 20 MG TABLET PO SCH ×2 (07:38→10:17)
[2016-09-28] MEDS: hydroCHLOROthiazide 12.5 MG CAPSULE PO SCH ×2 (07:38→10:17)
[2016-09-28] MEDS: risperiDONE 1 MG TABLET PO SCH ×3 (07:41→20:35)
[2016-09-28] MEDS ORDERED: MIDAZOLAM 2 MG/2 ML VIAL ONE (08:12)
[2016-09-28] MEDS ORDERED: LIDOCAINE 1% 20 ML VIAL ONE (08:12)
[2016-09-28] MEDS ORDERED: HYDROmorphone 2 MG/1 ML VIAL ONE (08:12)
[2016-09-28] MEDS ORDERED: ASPIRIN 325 MG TABLET ONE (08:27)
--- NOTE | 2016-09-28 08:43 | Operative Note ---
Date of procedure: 09/28/16 Procedure Preformed: Procedure performed: 1. Left heart catheterization 2. Coronary angiography 3. Left ventriculography 4. Right femoral arteriotomy closed with angina device Surgeon / Physician: Dony Nino Post-op diagnosis: same Findings: Findings: Left dominant system with some mildly ectatic vessels but no obstructive coronary artery disease. Significant elevated left-sided filling pressure with probably normal LV systolic function. Specimens: none sent
--- NOTE | 2016-09-28 10:19 | Cardiac Catheterization ---
Date of Procedure:: 09/28/16 Post-op diagnosis: same Procedure: Procedure performed: 1. Left heart catheterization 2. Coronary angiography 3. Left ventriculography 4. Right femoral arteriotomy closed with the Angio-Seal device Brief clinical summary: Mr. Hines a 51-year-old with history of smoking and schizophrenia who has some chest discomfort a month ago and presented with episodes of severe dyspnea and atrial fibrillation RVR. He had mild troponin bump after admission. Description of procedure: After obtaining informed consent, the right groin was prepped and draped in the usual sterile fashion. Next a short 6 Divehi sheath was placed in the right femoral artery using a modified Seldinger technique, after the patient received IV sedation and local anesthetic. Next a JL4 catheter was advanced over a guidewire under fluoroscopic guidance, and was engaged to the left coronary artery after which angiography was performed in multiple views. This was then removed over a wire, and a JR4 catheter was advanced in similar fashion, and was engaged to the right coronary artery after which angiography was performed in multiple views. Next a bent pigtail catheter was advanced into the left ventricle, where hemodynamic measurements were obtained, and left ventriculography was performed. An angiogram of the sheath showed that it was inserted in the right common femoral artery in a vessel suitable for closure. Hemostasis was obtained with Angio-Seal device with no residual bleeding. The patient was transferred from the biology laboratory assistant in good condition without complication. Left main coronary arteries normal developed and free disease. Left coronaries is larger than average caliber is slightly ectatic proximally. Left anterior CRE is a large an average caliber vessel that wraps around the apex. There are couple of thin diagonal branches. There is moderate irregularities only with no discrete lesions. The circumflex is very large and is the dominant vessel. Gives off a average caliber bifurcating ramus branch with mild irregularities. There is a tiny OM1, very thin OM 2 branch, and a very large left-sided PDA and large left-sided posterior lateral. There are mild irregularities with no discrete lesions noted. The right coronary is small and nondominant with minimal irregularities. Left ventricular: Left ventricle appears to be thickened with at least normal to hyperdynamic LV function. The estimated ejection fraction is at least 65% with no clear wall motion normality. The study is a bit limited by the irregularity of his rhythm. Impression: 1. Probably normal to hyperdynamic LV systolic function with ejection fraction estimated be 65% 2. Left dominant system 3. Normal coronary arteries with the exception of some mild irregularities. Recommendation discussion: Given these findings is clear that Mr. Hines did not have significant coronary artery disease as the cause of his dyspnea, atrial fibrillation, or previous chest pain. His mild troponin elevation is likely related to some RVR from his atrial fibrillation persists. I am starting his Xarelto back this morning. I changed from 100 of short acting metoprolol data long-acting Toprol 50 mg twice daily to promote normal sinus rhythm. He denies any daytime somnolence. He may need up titration of this depending on how well controlled his rate is. If he does not convert cardioversion could be considered at some point in the future. He saw Dr. Pereira over a month ago and was to follow-up with him, but for some reason came to [facility]. He reports he had some type of appointment this week for blood pressure check or possibly to see practitioner? I will try to send a copy this note to Dr. Pereira's office. Anesthesia: minimal conscious sedation Surgeon / Physician: Dony Nino Community Service Representative: other Estimated blood loss: minimal Specimens: none sent Condition: stable Disposition: floor - Medications / Follow-up
[2016-09-28] MEDS: RIVAROXABAN 20 MG TABLET PO SCH (14:14)
--- NOTE | 2016-09-28 14:19 | Hospitalist Progress Note ---
Assessment and Plan (1) Congestive heart failure Status: Acute Assessment and plan: The patient will continue diuretic medications. The patient has congestive heart failure with preserved ejection fraction. The patient does not need coronary interventions. Current Visit: Yes Qualifiers: Congestive heart failure type: diastolic Congestive heart failure chronicity: acute on chronic Qualified Code(s): I50.33 - Acute on chronic diastolic (congestive) heart failure (2) Schizophrenia, paranoid type Status: Chronic Current Visit: Yes (3) Atrial fibrillation with rapid ventricular response Status: Acute Current Visit: Yes Hospitalist: Subjective Interval history: Mr. Hines had heart cath today. The patient does not have significant obstructive disease. He seems to have fluid overload condition with elevated left heart pressures. Exam - Constitutional Vitals: Period Temp Pulse Resp BP Sys/Adamson Pulse Ox Last 24 Hr 97.5 F-98.2 F 65-114 16-22 92-149/51-91 91-99 Exam: Constitutional System: Mild distress. No tremulousness. The patient is somewhat anxious and impatient with the clinical setting. Head: Normocephalic, atraumatic. Ears, Nose and Throat System: No evidence of Otitis or Mastoiditis. No epistaxis or discharge Eyes System: Pupils equal, round, and reactive. Extraocular muscles intact. Neck: Supple, without adenopathy, 1+ jugular venous distention. No thyromegaly , neck mass, or prior surgery apparent. Respiratory System: Chest few rales in bases to auscultation. Cardiovascular System: Heart with irregular rate and rhythm. No murmur. GI System: Abdomen soft, nontender. Normo active bowel sounds present. Musculoskeletal System: limbs with trace pedal edema. Full distal pulses. Neurological System: No discernable sensory deficit. No aphasia Psychiatric System: Conversation is consistent with schizophrenia. Results - Labs CBC & BMP: 09/28/16 04:47 09/28/16 04:47 Lab Results: I have reviewed the past 24 hour labs Quality Measures - VTE Contraindication to Pharmacological VTE Prophylaxis: Already on Theraputic Agent , No Prophylaxis Needed
--- NOTE | 2016-09-28 14:38 | Event Note ---
I went by to see Mr. Hines after discussing with Dr. Nino. The patient has no coronary or epicardial coronary artery disease plan is to control his heart rate continue anticoagulation. He may be discharged when rate is controlled from a cardiac standpoint. Follow-up with either Dr. Nino or Dr. Pereira at the patient's discretion.
[2016-09-28] MEDS: BENZTROPINE 2 MG TABLET PO SCH (20:36)
[2016-09-28] MEDS: ATORVASTATIN 40 MG TABLET PO SCH (20:36)
[2016-09-29] MEDS: ALBUTEROL 0.63 MG/3 ML NEB RESP TX SCH ×4 (00:23→19:45)
[2016-09-29] MEDS: SODIUM CHLORIDE 0.45% 1,000 ML IV SCH ×2 (05:13→17:26)
[2016-09-29 06:01] LABS: Basophils % 0.6 % (0.0-0.8); Eosinophils # 0.3 10*3/uL (0.0-0.87); Eosinophils % 4.7 % (0.00-10.9); Hematocrit 39.9 VOL% (42.0-52.0); Hemoglobin 13.9 GM/DL (14.0-18.0); Immature Granulocytes % 0.3 %; Immature Granulocytes Absolute 0.02 #; Lymphocytes # 2.3 10*3/uL (1.4-4.0); Lymphocytes % 33.3 % (21.2-54.2); Mean Corpuscular HGB Conc 34.8 GM/DL (32-36); Mean Corpuscular Hemoglobin 30 PG (27-34); Mean Corpuscular Volume 85.3 FL (87-102); Mean Platelet Volume 11.5 FL (9.6-12.0); Monocytes # 0.7 10*3/uL (0.11-0.8); Monocytes % 9.9 % (1.7-12.7); Neutrophils # 3.6 10*3/uL (1.4-7.4); Neutrophils % 51.2 % (38.7-73.9); Platelet Count 122 T/CUMM (130-400); Red Blood Count 4.68 MC/CUMM (3.8-5.5); Red Cell Distribution Width 13.4 % (9.3-17.3)
[2016-09-29] MEDS: LEVOTHYROXINE 100 MCG TABLET PO SCH (06:14)
[2016-09-29 06:28] LABS: Calcium 9.2 MG/DL (8.5-10.1); Osmolality,Calculated 277.7 MOS/KG (273-304); Potassium 4.4 MMOL/L (3.5-5.1)
[2016-09-29] MEDS: LISINOPRIL 20 MG TABLET PO SCH (08:54)
[2016-09-29] MEDS: risperiDONE 1 MG TABLET PO SCH ×2 (08:54→21:20)
[2016-09-29] MEDS: DIVALPROEX ER 500 MG TABLET PO SCH ×2 (08:55→21:21)
[2016-09-29] MEDS: PANTOPRAZOLE 40 MG TABLET PO SCH (08:55)
[2016-09-29] MEDS: METOPROLOL SUCCINATE XL 50 MG TABLET PO SCH ×2 (08:55→21:21)
[2016-09-29] MEDS: MULTIVITAMIN (CENTRUM) TABLET PO SCH (08:55)
[2016-09-29] MEDS: RIVAROXABAN 20 MG TABLET PO SCH (08:55)
[2016-09-29] MEDS: hydroCHLOROthiazide 12.5 MG CAPSULE PO SCH (08:55)
--- NOTE | 2016-09-29 10:08 | Cardiology Progress Note ---
<Janny Roca E - Last Filed: 09/29/16 09:53> Assessment and Plan - Time spent with patient Time spent with patient: Greater than 30 minutes (1) Atrial flutter Status: Acute Assessment and plan: SEE PLAN OF CARE LISTED BELOW Current Visit: Yes (2) Chest pain Status: Resolved Assessment and plan: SEE PLAN OF CARE LISTED BELOW Current Visit: Yes (3) Hypertension Status: Chronic Assessment and plan: SEE PLAN OF CARE LISTED BELOW Current Visit: Yes (4) Dyslipidemia Status: Chronic Assessment and plan: SEE PLAN OF CARE LISTED BELOW Current Visit: Yes (5) Elevated troponin Status: Acute Assessment and plan: SEE PLAN OF CARE LISTED BELOW Current Visit: Yes (6) Schizophrenia, paranoid type Status: Chronic Assessment and plan: SEE PLAN OF CARE LISTED BELOW Current Visit: Yes (7) Atrial fibrillation with rapid ventricular response Status: Acute Assessment and plan: SEE PLAN OF CARE LISTED BELOW Current Visit: Yes Cardiology - PN: Subj Interval history: PETROL TANKER DRIVER: DR. MANJARREZ SUMMARY: 51WM routinely followed by Dr. Manjarrez for atrial fibrillation. History of hypertension, dyslipidemia, paranoid schizophrenia. Admitted September 26, 2016 with complaints of shortness of breath. He was diagnosed with atrial fibrillation with RVR. (It is believed he was diagnosed with atrial fibrillation approximately 2 weeks ago and treated with Xarelto and beta- blockade by Dr. Manjarrez). Rate was controlled. Mildly elevated troponin ( not PA). Underwent cardiac catheterization September 28, 2016, performed by Dr. Nino, with the following noted: Impression: 1. Probably normal to hyperdynamic LV systolic function with ejection fraction estimated be 65% 2. Left dominant system 3. Normal coronary arteries with the exception of some mild irregularities. Recommendation/discussion by Dr. Nino: Given these findings is clear that Mr. Hines did not have significant coronary artery disease as the cause of his dyspnea, atrial fibrillation, or previous chest pain. His mild troponin elevation is likely related to some RVR from his atrial fibrillation persists. I am starting his Xarelto back this morning. I changed from 100 of short acting metoprolol data long-acting Toprol 50 mg twice daily to promote normal sinus rhythm. He denies any daytime somnolence. He may need up titration of this depending on how well controlled his rate is. If he does not convert cardioversion could be considered at some point in the future. He saw Dr. Manjarrez over a month ago and was to follow-up with him, but for some reason came to [facility]. He reports he had some type of appointment this week for blood pressure check or possibly to see practitioner? I will try to send a copy this note to Dr. Manjarrez's office. SEPTEMBER 29, 2016: Patient is doing well this morning. He has had no chest pain. Right groin is soft, free of hematoma or bruit. Mild ecchymosis noted. Labs are stable. Remains in atrial flutter. Currently taking Xarelto 20mg daily. Dr. Maria will evaluate patient this morning however, from a cardiology standpoint, I suspect he is eligible for discharge when attending is ready. I will verify patient has a follow-up appointment with Dr. Manjarrez in the next few weeks. We will also request his records be sent to Dr. Manjarrez. ASSESSMENT/PLAN: 1. ATRIAL FIB/FLUTTER WITH RVR - rate has been relatively well controlled. OPAL VASC SCORE 1. On Xarelto for stroke prevention. previously initiated by Dr. Manjarrez. Will continue and return patient to their service for follow-up and continued treatment. 2. CHEST PAIN - noncardiac in nature. Resolved 3. ELEVATED TROPONIN -suspect related to the rapid ventricular response. This is not a PA 4. HYPERTENSION - adequately controlled 5. DYSLIPIDEMIA - continue lipid-lowering agent Exam (Progress Note) - Constitutional Vitals: Period Temp Pulse Resp BP Sys/Adamson Pulse Ox Last 24 Hr 96.4 F-97.9 F 44-176 17-20 98-149/66-98 94-99 Exam: General: [Appears well with no apparent distress.] [Pleasant and cooperative. ] [Appears comfortable.] HEENT: [PERRL, normocephalic, atraumatic. Mucous membranes moist. No jaundice noted. Conjunctiva moist and clear, sclerae anicteric] Neck: No JVD/HJR, no thyromegaly or lymphadenopathy noted. No carotid bruit appreciated Cardiac: [Regular rate and rhythm.] [No murmur rub or gallop.] Lungs: [Clear to auscultation without accessory muscle use to assist the respiratory pattern.] Not requiring oxygen Abdomen: Soft, bowel sounds normoactive. Nontender and nondistended. No abdominal bruit or thrill noted. No masses noted. Musculoskeletal: No fluid collection. Decreased range of motion is noted. Extremities: Right groin soft, free of hematoma or bruit. Mild ecchymosis noted. No clubbing, cyanosis noted. [ No edema noted.] Upper extremity pulses 2+. Lower extremity pulses 2+. Capillary refill less than 3 seconds. Skin: No unusual lesions or rashes. No skin breakdown appreciated. Neuro: Awake, alert and oriented 3. Moves all extremities well without hemiparesis or paralysis. No essential tremor is appreciated. Result/EKG - Labs CBC & BMP: 09/29/16 05:19 09/29/16 05:19 Lab Results: I have reviewed the past 24 hour labs Labs: Laboratory Results - last 24 hr 09/28/16 09/29/16 09/29/16 16:15 05:19 05:19 WBC 7.0 RBC 4.68 Hgb 13.9 L Hct 39.9 L MCV 85.3 L MCH 30 MCHC 34.8 RDW 13.4 Plt Count 122 L MPV 11.5 Neut % (Auto) 51.2 Lymph % (Auto) 33.3 Otoe % (Auto) 9.9 Eos % (Auto) 4.7 Baso % (Auto) 0.6 Neut # (Auto) 3.6 Lymph # (Auto) 2.3 Otoe # (Auto) 0.7 Eos # (Auto) 0.3 Baso # (Auto) 0.0 Immature Gran % 0.3 Nucleated RBC % 0.0 Immature Gran # 0.02 Nucleated RBCs # 0.00 Immature Plt Fraction 0.0 Sodium 138 Potassium 4.4 Chloride 100 Carbon Dioxide 28 Anion Gap 14.4 BUN 24 H Creatinine 1.50 H GFR Calculation 70 BUN/Creatinine Ratio 16.00 Glucose 86 POC Glucose 155 H Calculated Osmolality 277.7 Calcium 9.2 - Diagnostic Findings Procedure: Chest x-ray: report reviewed by me - EKG EKG results: interpreted by me EKG shows: atrial fibrillation (Atrial flutter) Quality Measures - VTE Contraindication to Pharmacological VTE Prophylaxis: Already on Theraputic Agent , No Prophylaxis Needed Specialty Discharge - Follow Up or Referrals Follow up with: Juliano Manjarrez Jr. [Physician] - (Please get patient an appointment to see Dr. Manjarrez or Jossie Bullock, a CMP, within the next 2 weeks for groin check, blood pressure check) <Debby Maria - Last Filed: 09/29/16 10:24> Cardiology - PN: Subj Interval history: The patient is stable and ready for discharge. We have nothing further to add and we will sign off. Recommend transfer back to [facility] see at the discretion of the hospitalist. He may follow-up with Dr. Manjarrez or Dr. Nino at his discretion. I discussed with Dr. Nino he states that he was happy either way Exam (Progress Note) - Constitutional Vitals: Period Temp Pulse Resp BP Sys/Adamson Pulse Ox Last 24 Hr 96.4 F-97.9 F 44-176 17-20 105-149/70-98 94-99 Result/EKG - Labs CBC & BMP: 09/29/16 05:19 09/29/16 05:19 Labs: Laboratory Results - last 24 hr 09/28/16 09/29/16 09/29/16 16:15 05:19 05:19 WBC 7.0 RBC 4.68 Hgb 13.9 L Hct 39.9 L MCV 85.3 L MCH 30 MCHC 34.8 RDW 13.4 Plt Count 122 L MPV 11.5 Neut % (Auto) 51.2 Lymph % (Auto) 33.3 Otoe % (Auto) 9.9 Eos % (Auto) 4.7 Baso % (Auto) 0.6 Neut # (Auto) 3.6 Lymph # (Auto) 2.3 Otoe # (Auto) 0.7 Eos # (Auto) 0.3 Baso # (Auto) 0.0 Immature Gran % 0.3 Nucleated RBC % 0.0 Immature Gran # 0.02 Nucleated RBCs # 0.00 Immature Plt Fraction 0.0 Sodium 138 Potassium 4.4 Chloride 100 Carbon Dioxide 28 Anion Gap 14.4 BUN 24 H Creatinine 1.50 H GFR Calculation 70 BUN/Creatinine Ratio 16.00 Glucose 86 POC Glucose 155 H Calculated Osmolality 277.7 Calcium 9.2
--- NOTE | 2016-09-29 13:06 | Physician Query Form ---
CLICK EDIT DOCUMENT TO SELECT QUERY ANSWER --> OK --> SIGN Ashley Manuel RN Clinical Research Chief Engineer W) [phone] (f) [phone] [email or web address] PROVIDERS: Make your selection(s) from the choices in EACH section by typing an "x" and enter comments in the comment section. Please use your independent medical judgment in providing your response. This request does not imply that any particular answer is desired or expected. CLINICAL INDICATORS: (Providers should not edit this section) Based on documentation of "acute CHF", FEE=729, Heart catheterization report states "The estimated ejection fraction is at least 65%". Pt. treated with IV Lasix. Please provide further specificity regarding CHF. TYPE: ( ) Systolic (HFrEF - heart failure with reduced systolic function/EF) ( X) Diastolic (HFpEF - heart failure with preserved systolic function/EF) ( ) Combined Systolic/Diastolic ( ) Other, please specify: ( ) Clinically unable to determine COMMENTS: PLEASE ALSO DOCUMENT RESPONSE IN PROGRESS NOTES AND/OR DISCHARGE SUMMARY Use of terms such as suspected, likely, or probable (associated with a specific diagnosis that is being evaluated, monitored, or treated as if it exists) are acceptable and can be restated in the discharge summary if not ruled out. MTDD
--- NOTE | 2016-09-29 16:33 | Hospitalist Progress Note ---
Assessment and Plan (1) Congestive heart failure Status: Acute Assessment and plan: The patient will continue diuretic medications. The patient has congestive heart failure with preserved ejection fraction. The patient does not need coronary interventions. The patient's present regimen appears to be beneficial. Will observe again tonight, check electrolytes in the morning, and consider discharge back to the shelter at that time. Current Visit: Yes Qualifiers: Congestive heart failure type: diastolic Congestive heart failure chronicity: acute on chronic Qualified Code(s): I50.33 - Acute on chronic diastolic (congestive) heart failure (2) Schizophrenia, paranoid type Status: Chronic Current Visit: Yes (3) Atrial fibrillation with rapid ventricular response Status: Acute Current Visit: Yes Hospitalist: Subjective Interval history: Mr. Hines is chest pain-free today. He has less anxiety and less shortness of breath today. The patient is cooperative with care and adhering to medical regimen. Exam - Constitutional Vitals: Period Temp Pulse Resp BP Sys/Adamson Pulse Ox Last 24 Hr 96.4 F-97.4 F 44-176 17-20 105-121/68-95 94-99 Exam: Constitutional System: S distress. No tremulousness. The patient is less anxious and impatient with the clinical setting. Head: Normocephalic, atraumatic. Ears, Nose and Throat System: No evidence of Otitis or Mastoiditis. No epistaxis or discharge Eyes System: Pupils equal, round, and reactive. Extraocular muscles intact. Neck: Supple, without adenopathy, 1+ jugular venous distention. No thyromegaly , neck mass, or prior surgery apparent. Respiratory System: Chest few rales in bases to auscultation. Cardiovascular System: Heart with irregular rate and rhythm. No murmur. GI System: Abdomen soft, nontender. Normo active bowel sounds present. Musculoskeletal System: limbs with trace pedal edema. Full distal pulses. Neurological System: No discernable sensory deficit. No aphasia Psychiatric System: Conversation is consistent with schizophrenia, but more compensated today. Results - Labs CBC & BMP: 09/29/16 05:19 09/29/16 05:19 Lab Results: I have reviewed the past 24 hour labs Quality Measures - VTE Contraindication to Pharmacological VTE Prophylaxis: Already on Theraputic Agent , No Prophylaxis Needed Specialty Discharge - Follow Up or Referrals Follow up with: Juliano Pereira Jr. [Physician] - (Please get patient an appointment to see Dr. Pereira or Jossie Bullock, a CMP, within the next 2 weeks for groin check, blood pressure check)
[2016-09-29] MEDS: ATORVASTATIN 40 MG TABLET PO SCH (21:20)
[2016-09-29] MEDS: BENZTROPINE 2 MG TABLET PO SCH (21:21)
[2016-09-30] MEDS: ALBUTEROL 0.63 MG/3 ML NEB RESP TX SCH ×3 (00:30→13:47)
[2016-09-30 05:23] LABS: Calcium 8.9 MG/DL (8.5-10.1); Magnesium 2.1 MG/DL (1.8-2.4); Osmolality,Calculated 279.5 MOS/KG (273-304); Potassium 4.3 MMOL/L (3.5-5.1)
[2016-09-30] MEDS: LEVOTHYROXINE 100 MCG TABLET PO SCH (06:06)
[2016-09-30] MEDS: hydroCHLOROthiazide 12.5 MG CAPSULE PO SCH (09:13)
[2016-09-30] MEDS: DIVALPROEX ER 500 MG TABLET PO SCH (09:13)
[2016-09-30] MEDS: METOPROLOL SUCCINATE XL 50 MG TABLET PO SCH (09:13)
[2016-09-30] MEDS: MULTIVITAMIN (CENTRUM) TABLET PO SCH (09:13)
[2016-09-30] MEDS: LISINOPRIL 20 MG TABLET PO SCH (09:13)
[2016-09-30] MEDS: PANTOPRAZOLE 40 MG TABLET PO SCH (09:13)
[2016-09-30] MEDS: risperiDONE 1 MG TABLET PO SCH (09:13)
[2016-09-30] MEDS: RIVAROXABAN 20 MG TABLET PO SCH (09:13)
--- NOTE | 2016-09-30 09:13 | Discharge Summary ---
Hospital Course - Hospital Course Hospital Course: The patient was admitted to the hospital with palpitations and chest pressure. The patient has history of atrial fibrillation with rapid ventricular response. After admission to the hospital the patient's heart rate was controlled with metoprolol. The patient continued on Xarelto to reduce the risk of stroke. The patient had cardiology consultation. On account of the patient's reduced ejection fraction the patient had coronary arteriogram performed. He did not show any evidence of coronary obstructions. The patient's symptoms improved with control of blood pressure as well as heart rate. The patient's home regimen is stable. The patient is now [facility] and [facility] medications. The patient's medicines were reconciled on admission and again upon discharge. The patient is his own medical decision maker and requested to continue as full code during hospital course. The patient is a present smoker and was given 4 minutes tobacco cessation education. On the date of discharge, the patient's chest is clear, heart has controlled irregular rhythm, and abdomen soft. On the date of discharge 34 minutes were required for patient assessment, reconciliation of medications, and preparation of discharge documents. - Time spent with patient Time with patient DS: Greater than 30 minutes Time spent discussing smoking cessation with patient: 3 to 10 minutes Diagnosis - Discharge Diagnosis (1) Congestive heart failure Status: Chronic (2) Schizophrenia, paranoid type Status: Chronic (3) Atrial fibrillation with rapid ventricular response Status: Resolved Specialty Discharge - Follow Up or Referrals Follow up with: Juliano Pereira Jr. [Physician] - (Please get patient an appointment to see Dr. Pereira or Jossie Bullock, laina CMP, within the next 2 weeks for groin check, blood pressure check) Discharge Plan - Discharge Data Disposition: Disch To Home/Self Care Condition at Discharge: Stable Discharge Diet: heart healthy Activity: resume usual activities as tolerated - Discharge Medications New Atorvastatin [Lipitor] 40 mg PO BEDTIME #60 tablet Continue Levothyroxine Tab [Synthroid Tab] 100 mcg PO DAILY@0700 risperiDONE [Risperidone] 3 mg PO BID hydroCHLOROthiazide [Hydrochlorothiazide] 12.5 mg PO DAILY Rivaroxaban [Xarelto] 20 mg PO DAILY Omeprazole 20 mg PO DAILY Metoprolol Tartrate 100 mg PO DAILY Divalproex Sodium [Divalproex Sodium ER] 2,000 mg PO BEDTIME Divalproex Sodium [Divalproex Sodium ER] 500 mg PO QAM Benztropine Mesylate 2 mg PO BEDTIME diphenhydrAMINE CAP [Benadryl Cap] 50 mg PO Q4H PRN PRN Reason: Anxiety Multivitamin [One Daily Multivitamin] 1 each PO DAILY Lisinopril 20 mg PO DAILY hydrOXYzine pamoate [Hydroxyzine Pamoate] 25 mg PO TID PRN PRN Reason: Anxiety Gemfibrozil 600 mg PO BID - Follow Up or Referral Follow Up: Juliano Pereira Jr. [Physician] - (Please get patient an appointment to see Dr. Pereira or Jossie Bullock, laina PENALOZA, within the next 2 weeks for groin check, blood pressure check) - Forms/Instructions Exam - Constitutional Vitals: Period Temp Pulse Resp BP Sys/Adamson Pulse Ox Last 24 Hr 96.8 F-97.4 F 50-115 16-20 107-128/68-95 94-99 Discharge Results Labs on day of discharge: Labs from last 24 hours 09/30/16 04:16 Sodium 139 Potassium 4.3 Chloride 101 Carbon Dioxide 29 Anion Gap 13.3 BUN 24 H Creatinine 1.40 H GFR Calculation 76 BUN/Creatinine Ratio 17.00 Glucose 81 Calculated Osmolality 279.5 Calcium 8.9 Magnesium 2.1 DS: Provider Date of admission: 09/26/16 09:44 Primary care physician: . No PCP Attending physician on admission: Maria Ines Frank Consults: 09/26/16 14:36 Consult to Physician [CONS] Routine Comment: Consulting Provider: Cardiology - [facility] Discharging clinician: Philip Flores MD
[2016-09-30 11:47] VITALS: BP 119/74
== END 2016-09-30 14:29 | disposition home or self-care (01) | DRG 192 ==
LOC: N.ED 07:40 → N.EDINP 09:44 → SUATTDRO 09:44 → N.EDINP 11:03 → N.TELES 11:08
PROVIDERS: ADMIT Hospitalist; ATTEND Internal Medicine
PROC: CLCCHCL (ICD-10-PCS; 2016-09-28 08:45)